=== PATIENT | male | born 1955 | race Caucasian/White ===

== ENCOUNTER → 2016-12-06 | Day surgery (SDC) | payer MEDICARE ==
[~2016-12-06] MED LIST: LACTATED RINGER'S 1000 ML INJ 1,000 ML ONE; PHEN30 PO; PROPOFOL 500 MG/50 ML BTL IV ONE
--- NOTE | 2016-12-06 10:30 | GIPROC ---
[facility] [address] [facility], [id number] COLONOSCOPY PROCEDURE REPORT EXAM DATE: 12/06/2016 PATIENT NAME: Ezekiel Dockery MR #: [id number] BIRTHDATE: 1955 ENDOSCOPIST: Negin Pina MD ORDER #: [id number] RN TRIAGE: Citlaly Morrissey RN STATUS: outpatient INDICATIONS: The patient is a 60 yr old male here for a colonoscopy due to average risk patient for colon cancer PROCEDURE PERFORMED: Colonoscopy with biopsy MEDICATIONS: None and Per Anesthesia. PREP QUALITY: The [place] Bowel Prep Score was Right colon 1, Mid colon 2, and Left colon 2. Total = 5. PREP TYPE:GoLytely ESTIMATED BLOOD LOSS: None CONSENT: The patient understands the risks and benefits of the procedure and understands that these risks include, but are not limited to: sedation, allergic reaction, infection, perforation and/or bleeding. Alternative means of evaluation and treatment include, among others: physical exam, x-rays, and/or surgical intervention. The patient elects to proceed with this endoscopic procedure. medical equipment was checked for proper function. Hand hygiene and appropriate measures for infection prevention was taken. After the risks, benefits and alternatives of the procedure were thoroughly explained, Informed consent was verified, confirmed and timeout was successfully executed by the treatment team. A digital exam revealed external hemorrhoids The EC-[id number] ([id number]) endoscope was introduced through the anus and advanced to the cecum, which was identified by both the appendix and ileocecal valve. The instrument was then slowly withdrawn as the colon was fully examined. COLON FINDINGS: A polypoid shaped sessile polyp ranging between 3-5mm in size was found in the ascending colon. Multiple biopsies were performed using cold forceps. A small near circumferential patch of colitis was found in the rectum. The mucosa was erythematous and had petechiae. Retroflexed views revealed internal hemorrhoids and Retroflexed views revealed small internal hemorrhoids The scope was then completely withdrawn from the patient and the procedure terminated. PROCEDURE WITHDRAWAL TIME:8minutes ADVERSE EVENTS: There were no complications. IMPRESSIONS: 1. A sessile polyp ranging between 3-5mm in size was found in the ascending colon; multiple biopsies were performed using cold forceps 2. Small near circumferential colitis was found in the rectum; The mucosa was erythematous and had petechiae 3. Retroflexed views revealed internal hemorrhoids 4. Retroflexed views revealed small internal hemorrhoids 5. Revealed external hemorrhoids RECOMMENDATIONS: 1. Await biopsy results. Biopsy results will not be ready for 7-10 days. If you don't hear from us in two weeks, call our office for results. 2. Continue surveillance 3. Yearly hemoccult 4. High fiber diet RECALL: Return 1 year Colonoscopy, pending biopsy results Negin Pina MD eSigned: Negin Pina MD 12/06/2016 10:30 AM cc: Andrew [facility] Brenda and Rafael Stout M.D. PATIENT NAME: Ezekiel Dockery MR#: [id number]
== END | disposition home or self-care (01) ==
LOC: ESDC 08:08
PROVIDERS: ATTEND Internal Medicine Gastroenterology
DX: Z12.11 Encounter for screening for malignant neoplasm of colon (principal); D12.2 Benign neoplasm of ascending colon; K64.4 Residual hemorrhoidal skin tags; K52.9 Noninfective gastroenteritis and colitis, unspecified; K64.8 Other hemorrhoids
CPT/HCPCS: 00810; 45380; 88305; J7120